=== PATIENT | male | born 1965 | race Caucasian/White ===

== ENCOUNTER 2019-11-13 16:13 | Observation (INO) ==
[2019-11-13] MEDS ORDERED: 0.9 % Sodium Chloride 1,000 ML IVC ONE (16:44)
[2019-11-13 17:11] LABS: Hematocrit 42.5 % (37.5-50.1); Mean Corpuscular HGB Conc 35.3 g/dL (31.6-35.5); Mean Corpuscular Hemoglobin 27.8 pg (28.0-33.3); Mean Corpuscular Volume 78.8 fL (83.0-100.0); Mean Platelet Volume 9.5 fL (9.4-12.4); Platelet Count 280 K/mcL (140-400); Red Blood Count 5.39 M/mcL (4.19-5.50); Red Cell Distribution Width 12.6 % (11.5-14.5); White Blood Count 7.3 K/mcL (4.3-11.1)
[2019-11-13 17:29] LABS: Alanine Aminotransferase 14 Units/L (7-52); Albumin 4.9 g/dL (3.5-5.7); Albumin/Globulin Ratio 1.6 (1.1-2.2); Alkaline Phosphatase 61 Units/L (34-104); Aspartate Amino Transferase 16 Units/L (13-39); BUN/Creatinine Ratio 25 (6-26); Bilirubin,Direct 0.3 mg/dL (0.0-0.2); Bilirubin,Total 1.3 mg/dL (0.3-1.0); Blood Urea Nitrogen 20 mg/dL (6-20); Calcium 10.1 mg/dL (8.6-10.3); Carbon Dioxide 25 mEq/L (23-29); Chloride 96 mEq/L (98-107); Glucose 138 mg/dL (70-105); Lipase 38 Units/L (11-82); Osmolality,Calculated 287 (280-300); Potassium 2.6 mEq/L (3.5-5.1); Sodium 136 mEq/L (136-145); Total Protein 7.9 g/dL (6.4-8.9); eGFR For African Americans > 60 (> 60); eGFR For Non-African Americans > 60 (> 60)
[2019-11-13 17:41] LABS: Bilirubin,Urine Negative (Negative); Blood,Urine Negative (Negative); Clarity,Urine Clear (Clear); Color,Urine Yellow (Yellow); Glucose,Urine (UA) Normal (Normal); Ketones,Urine 40 mg/dL (Negative); Leukocyte Esterase,Urine Negative (Negative); Nitrite,Urine Negative (Negative); PH,Urine 6.5 pH Units (5.0-8.0); Protein,Urine Trace mg/dL (Neg-Trace); Specific Gravity,Urine 1.025 (1.010-1.025); Urobilinogen,Urine Normal (Normal)
[2019-11-13 17:44] LABS: Bacteria,Urine None Seen per hpf (None-Few); Hyaline Casts,Urine None Seen per lpf (None-Few); Squamous Epithelial Cell,Urine Few per lpf (None-Few); WBC,Urine 0-3 per hpf (0-3)
[2019-11-13] MEDS ORDERED: Ondansetron 4 MG/2 ML VIAL IVP ONE (18:04)
[2019-11-13] MEDS ORDERED: Ketorolac 15 MG/ML VIAL IVP ONE (18:04)
[2019-11-13] MEDS ORDERED: *HR* HYDROmorphone 2 MG/ML SYRINGE IVP ONE (19:19)
[2019-11-13] MEDS ORDERED: Acetaminophen 325 MG TABLET PO PRN (22:04)
[2019-11-13] MEDS ORDERED: Naloxone 0.4 MG/ML INJ IVP PRN (22:04)
[2019-11-13] MEDS: 0.9 % Sodium Chloride 1,000 ML IVC SCH (23:39)
[2019-11-14 01:47] LABS: Basophils % 0.1 %; Hemoglobin 14.1 g/dL (12.9-16.9); Immature Granulocytes % 0.4 % (0-4); Mean Corpuscular HGB Conc 35.3 g/dL (31.6-35.5); Mean Corpuscular Hemoglobin 28.5 pg (28.0-33.3); Mean Platelet Volume 10.4 fL (9.4-12.4); Monocytes # 0.5 K/mcL (0.0-1.3); Monocytes % 7.6 %; Neutrophils # 5.4 K/mcL (1.6-8.9); Platelet Count 248 K/mcL (140-400); Red Blood Count 4.94 M/mcL (4.19-5.50); Red Cell Distribution Width 12.5 % (11.5-14.5); Segmented Neutrophils % 77.9 %
[2019-11-14] MEDS ORDERED: *HR* HYDROmorphone (PF) 1 MG/ML SYRINGE IVP PRN ×2 (01:58→08:04)
[2019-11-14 02:29] LABS: BUN/Creatinine Ratio 25 (6-26); Blood Urea Nitrogen 20 mg/dL (6-20); Calcium 9.3 mg/dL (8.6-10.3); Carbon Dioxide 28 mEq/L (23-29); Chloride 97 mEq/L (98-107); Glucose 98 mg/dL (70-105); Osmolality,Calculated 285 (280-300); Phosphorous 3.9 mg/dL (2.7-4.5); Potassium 2.5 mEq/L (3.5-5.1); Sodium 136 mEq/L (136-145); eGFR For African Americans > 60 (> 60); eGFR For Non-African Americans > 60 (> 60)
[2019-11-14] MEDS ORDERED: Potassium Chloride 40 MEQ, Lidocaine 1% 2 ML in 0.9 % Sodium Chloride 500 ML IVPB ONE (03:00)
[2019-11-14] MEDS: Ondansetron 4 MG/2 ML VIAL IVP PRN ×2 (03:21→14:09)
[2019-11-14 04:54] LABS: BUN/Creatinine Ratio 24 (6-26); Blood Urea Nitrogen 18 mg/dL (6-20); Calcium 8.7 mg/dL (8.6-10.3); Carbon Dioxide 26 mEq/L (23-29); Glucose 94 mg/dL (70-105); eGFR For African Americans > 60 (> 60); eGFR For Non-African Americans > 60 (> 60)
[2019-11-14 05:07] LABS: Chloride 100 mEq/L (98-107); Osmolality,Calculated 284 (280-300); Potassium 2.6 mEq/L (3.5-5.1); Sodium 136 mEq/L (136-145)
[2019-11-14] MEDS ORDERED: *HR* Enoxaparin 40 MG/0.4 ML SYRINGE SQ SCH (09:00)
[2019-11-14] MEDS: 0.9 % Sodium Chloride 1,000 ML IVC SCH (11:00)
[2019-11-14 11:52] LABS: Potassium,Urine 18.3 mEq/L
[2019-11-14 15:00] LABS: BUN/Creatinine Ratio 16 (6-26); Blood Urea Nitrogen 14 mg/dL (6-20); Calcium 8.7 mg/dL (8.6-10.3); Carbon Dioxide 27 mEq/L (23-29); Chloride 102 mEq/L (98-107); Glucose 100 mg/dL (70-105); Osmolality,Calculated 287 (280-300); Potassium 3.1 mEq/L (3.5-5.1); Sodium 138 mEq/L (136-145); eGFR For African Americans > 60 (> 60); eGFR For Non-African Americans > 60 (> 60)
[2019-11-14] MEDS ORDERED: diazePAM 5 MG TABLET PO PRN (15:28)
[2019-11-14] MEDS ORDERED: *HR* OxyCODONE Immed Rel 5 MG TABLET PO PRN (15:30)
[2019-11-14 16:26] VITALS: BP 111/63
[2019-11-14] MEDS ORDERED: Metoclopramide 10 MG/10 ML UD.LIQ PO SCH (17:00)
[2019-11-14] MEDS ORDERED: carvediloL 6.25 MG TABLET PO SCH (17:00)
== END 2019-11-14 18:59 | disposition home or self-care (01) ==
LOC: EMEROOARM 16:13 → 3ANU 16:13 → SUATTDRO 19:59 → 3ANU 22:05
PROVIDERS: ADMIT Internal Medicine; ATTEND Internal Medicine